=== PATIENT | female | born 1960 | race Caucasian/White ===

== ENCOUNTER 2017-01-08 10:28 | Emergency (ER) | payer MEDICAID ==
[~2017-01-08] VITALS: Ht 162.6 cm; Wt 54.4 kg
--- NOTE | 2017-01-08 10:28 | NUR ---
BROUGHT BACK TO BED #7 AND TRIAGED. REPORT GIVEN TO LC
[2017-01-08 10:30] VITALS: BP_SYST 118
--- NOTE | 2017-01-08 10:33 | NUR ---
Dr. Shaffer at bedside examining patient. New orders received.
--- NOTE | 2017-01-08 10:35 | NUR ---
Patient brought in by son and daughter for chief complaint of abdominal pain 8. Patient is alert and oriented x 4, verbal, complaining of abdominal pain and burn 8/10 and nausea since this AM. Patient has history of chronic gastritis. Patient denies other complaints and injury, none noted.
[2017-01-08] MEDS ORDERED: MAGNESIUM CITRATE 300 ML ORAL SOLUTION PO ONE (11:15)
[2017-01-08] MEDS ORDERED: MAG HYDROX/AL HYDROX/SIMETH 30 ML, BELLADONNA ALKALOIDS/PHENOBARB 10 ML, LIDOCAINE VISC... PO ONE ×3 (11:15)
--- NOTE | 2017-01-08 11:30 | NUR ---
Patient medicated as ordered.
[2017-01-08 11:50] VITALS: BP_SYST 110
--- NOTE | 2017-01-08 11:50 | NUR ---
Patient given written and verbal discharge instructions and verbalizes understanding. ER MD discussed with patient the results and treatment provided. Given copies of tests performed in ER. Patient in stable condition. ID arm band removed. Patient educated on pain management and to follow up with PMD. Pain Scale 2/10. Opportunity for questions provided and answered.
== END 2017-01-08 11:50 | disposition home or self-care (01) ==
LOC: SED 10:28
DX: K29.70 Gastritis, unspecified, without bleeding (principal); Z90.49 Acquired absence of other specified parts of digestive tract
CPT/HCPCS: 99283; J2001